=== PATIENT | female | born 1965 | race Caucasian/White ===

== ENCOUNTER 2017-04-29 08:28 | Inpatient (IN) | payer OTHER ==
[~2017-04-29] VITALS: Ht 160 cm; Wt 63.5 kg
[2017-04-29] MEDS ORDERED: FORTAMET500 MG (09:24)
[2017-04-29] MEDS ORDERED: TRICOR145 MG (09:25)
[2017-04-29] MEDS ORDERED: NORVIR100 MG (09:27)
[2017-04-29] MEDS ORDERED: ISENTRESS400 MG (09:27)
[2017-04-29] MEDS ORDERED: PREZISTA800 MG (09:28)
[2017-05-04] MEDS ORDERED: METFORMIN HCL1000 MG PO (17:20)
[2017-05-04] MEDS ORDERED: METFORMIN HCL500 MG PO (17:24)
[2017-05-04] MEDS ORDERED: Megace PO (17:47)
[2017-05-04] MEDS ORDERED: GABAPENTIN600 MG PO (17:47)
[2017-05-04] MEDS ORDERED: MULTI VITAMIN1 EACH PO (17:47)
== END 2017-05-04 18:29 | DRG 73 ==
LOC: ER 08:28 → MEDJ 16:43 → SEC-K 16:43 → SURH 16:43 → SEC-K 17:53 → SURH 05-01 01:15 → SEC-K 05-01 18:27 → SURH 05-04 14:06
PROC: BW28ZZZ Computerized Tomography (CT Scan) of Head (ICD-10-PCS; principal; 2017-04-29)
PROC: 8E0ZXY6 Isolation (ICD-10-PCS; 2017-04-29)
PROC: 4A0F33Z Measurement of Musculoskeletal Contractility, Percutaneous Approach (ICD-10-PCS; 2017-05-03)
PROC: 4A0 Measurement and Monitoring, Physiological Systems, Measurement (ICD-10-PCS; 2017-05-03)
DX: E11.43 Type 2 diabetes mellitus with diabetic autonomic (poly)neuropathy (principal); B20 Human immunodeficiency virus [HIV] disease; E11.65 Type 2 diabetes mellitus with hyperglycemia

== ENCOUNTER 2021-02-09 10:57 | Outpatient (CLI) | payer OTHER ==
[~2021-02-09 10:57] MED LIST: FORTAMET500 MG; GABAPENTIN600 MG PO; ISENTRESS400 MG; METFORMIN HCL1000 MG PO; METFORMIN HCL500 MG PO; METHOCARBAMOL500 MG PO; MULTI VITAMIN1 EACH PO; Megace PO; NORVIR100 MG; PREZISTA800 MG; TRICOR145 MG
== END 2021-02-09 10:59 | disposition home or self-care (01) ==
LOC: SONOGRAMA 10:57
PROVIDERS: ATTEND Pathology Anatomic Pathology & Clinical Pathology
DX: D34 Benign neoplasm of thyroid gland (principal); E07.89 Other specified disorders of thyroid

== ENCOUNTER 2022-06-19 22:31 | Emergency (ER) | payer OTHER ==
[~2022-06-19] VITALS: Ht 152.4 cm; Wt 56.7 kg
[2022-06-19] MEDS ORDERED: SYNJARDY XR 251 EACH PO (23:17)
[2022-06-20] MEDS ORDERED: DOLOGESIC 500-1 EACH PO (03:19)
[2022-06-20] MEDS ORDERED: ZITHROMAX500 MG PO (03:20)
== END 2022-06-20 03:24 ==
LOC: ER 22:31
DX: S01.521A Laceration with foreign body of lip, initial encounter (principal); W18.39XA Other fall on same level, initial encounter; Y93.9 Activity, unspecified; Y92.89 Other specified places as the place of occurrence of the external cause; S29.8XXA Other specified injuries of thorax, initial encounter; S39.82XA Other specified injuries of lower back, initial encounter; S09.8XXA Other specified injuries of head, initial encounter